=== PATIENT | male | born 1955 | race Caucasian/White ===

== ENCOUNTER 2017-05-01 07:45 | Emergency (ER) | payer MEDICARE, OTHER ==
[2017-05-01] MEDS ORDERED: Adenosine 6 MG/2 ML SDV IVPUSH ONE (07:52)
[2017-05-01] MEDS ORDERED: Adenosine 12 MG/4 ML SDV ONE (07:55)
[2017-05-01] MEDS ORDERED: Adenosine 6 MG/2 ML SDV ONE (07:55)
[2017-05-01] MEDS ORDERED: Sodium Chloride 0.9% 1,000 ML IV SCH (08:00)
--- NOTE | 2017-05-01 08:03 | EDM.PDOC ---
ED HPI GENERAL MEDICAL PROBLEM - General Chief Complaint: Cardiovascular Problem Stated Complaint: CHEST PAIN Time Seen by Provider: 05/01/17 07:48 Source of Information: Reports: Patient History Limitations: Reports: No Limitations - History of Present Illness INITIAL COMMENTS - FREE TEXT/NARRATIVE: 61-year-old male presents to the ED with sudden onset of palpitations with central chest pressure discomfort radiating to his mid back in January. Associated dyspnea and dizziness. Note the patient had attended muslim about 10- 7 this morning and about 7:40 this a.m. he developed palpitations and dizziness while standing. He sat down but he remained dizzy and developed central chest discomfort and was aware of palpitations in his chest. Of note this is never happened before. He denies taking any medications. He smokes one pack of cigarettes per day. Drinks coffee all day long. No recent use of dietary drinks or energy drinks. Upon arrival heart rate is up to 190 minute with a regular narrow complex tachycardia. Onset: Today Onset Date: 05/01/17 Onset Time: 07:40 Duration: Minutes: Location: Reports: Chest, Back (Name of neck and mid back), Upper Extremity, Left Quality: Reports: Ache, Pressure Severity: Moderate Improves with: Reports: None Worsens with: Reports: Movement Context: Reports: Other (Was standing in muslim when symptoms started). Denies : Activity, Exercise, Lifting, Sick Contact, Trauma Associated Symptoms: Reports: Malaise, Shortness of Breath, Weakness. Denies: Confusion, Chest Pain, Cough, cough w sputum, Diaphoresis, Fever/Chills, Headaches, Loss of Appetite, Nausea/Vomiting, Rash, Seizure, Syncope Treatments PRN PHYSICAL THERAPIST: Reports: Other (see below) (None) Mid-Sternal Chest Pain Score (Numeric/FACES): 5 - Related Data Allergies Allergy/AdvReac Type Severity Reaction Status Date / Time No Known Allergies Allergy Verified 05/01/17 08:03 Home Meds: Home Meds Metoprolol Succinate [Toprol XL] 25 mg PO DAILY #30 tab.er 05/01/17 [Rx] Past Medical History - Past Surgical History Neurological Surgical History: Reports: C-Spine (Cervical spine 2 with fusion L4 vertebra.), Discectomy, Lumbar Spine (2 surgeries on his lumbar spine with discectomy laminectomy and fusion 3 levels.) Musculoskeletal Surgical History: Reports: Hip Replacement (Right total hip replacement) Social & Family History - Tobacco Use Smoking Status *Q: Current Every Day Smoker Years of Tobacco use: 49 Packs/Tins Daily: 0.7 Used Tobacco, but Quit: No Second Hand Smoke Exposure: No - Caffeine Use Caffeine Use: Reports: Coffee - Recreational Drug Use Recreational Drug Use: No - Living Situation & Occupation Living situation: Reports: Occupation: Employed ED ROS GENERAL - Review of Systems Review Of Systems: See Below Constitutional: Reports: No Symptoms HEENT: Reports: No Symptoms Respiratory: Reports: Shortness of Breath Cardiovascular: Reports: Chest Pain (See history of present illness), Lightheadedness. Denies: Blood Pressure Problem, Claudication, Dyspnea on Exertion, Edema, Orthopnea, Palpitations, PND, Syncope, Other Endocrine: Reports: Fatigue GI/Abdominal: Reports: No Symptoms : Reports: Other (Urinary frequency with nocturia 2.) Musculoskeletal: Reports: Neck Pain, Back Pain (Chronically due to degenerative arthritis), Joint Pain ( chronically due to degenerative arthritisknees hips ) Skin: Reports: No Symptoms (with right temporal hip replacement in the past ) Neurological: Reports: Dizziness Psychiatric: Reports: No Symptoms ED EXAM, DIZZINESS - Physical Exam Exam: See Below Exam Limited By: No Limitations General Appearance: Alert, WD/WN, Anxious, Mild Distress Eye Exam: Bilateral Eye: Normal Inspection Throat/Mouth: Normal Inspection, Normal Lips, Normal Oropharynx Head Exam: Atraumatic, Normocephalic Neck: Normal Inspection, Supple, Non-Tender. No: Full Range of Motion, Lymphadenopathy (R), Thyromegaly Respiratory/Chest: Respiratory Distress, Decreased Breath Sounds (Mild tachypnea mildly decreased to both lower lung muhammad.), Wheezing (Occasional expiratory wheeze.). No: Rhonchi Cardiovascular: No Murmur, No Rub, Tachycardia (SVT at 1 91/m.) GI/Abdominal: Normal Bowel Sounds, Soft, Non-Tender, No Organomegaly, Other (No surgical scars) Neurological: Alert, Normal Mood/Affect, Normal Dorsiflexion, CN II-XII Intact, Normal Plantar Flexion, Oriented x 3 Back Exam: Normal Inspection, Decreased Range of Motion Extremities: Normal Inspection, Normal Range of Motion, Non-Tender, No Pedal Edema, Normal Capillary Refill Psychiatric: Normal Affect, Normal Mood Skin Exam: Warm, Dry, Intact, Normal Color, No Rash EKG INTERPRETATION EKG Date: 05/01/17 Time: 07:52 Rhythm: Other (SVT I now complex tachycardia at 1 91/m) Rate (Beats/Min): 191 [place]: Normal P-Wave: Absent QRS: Other (Borderline criteria for left ventricular hypertrophy pattern) ST-T: Other (Repolarization abnormality due to rate.) QT: Normal EKG Interpretation Comments: First ECG reveals SVT at 1 91/m. There is diffuse ST segment depression in all leads. Second ECG performed after identified 6 mg was given IV. The remainder reveals a return to sinus rhythm at 98/m. There are frequent unifocal PVCs. Baseline ST segment depression has returned to normal. I see no signs of ischemia at this time. Course - Vital Signs Last Recorded V/S: Last Vital Signs Temp 36.4 C 05/01/17 07:45 Pulse 88 05/01/17 08:15 Resp 12 05/01/17 08:15 BP 116/83 05/01/17 08:15 Pulse Ox 94 L 05/01/17 08:15 - Orders/Labs/Meds Orders: Active Orders 24 hr Category Date Time Status EKG 12 Lead [EKG Documentation Completion] [RC] STAT Care 05/01/17 07:45 Active EKG Documentation Completion [RC] STAT Care 05/01/17 07:59 Active Chest 1V Frontal [CR] Stat Exams 05/01/17 07:59 Taken Sodium Chloride 0.9% [Normal Saline] 1,000 ml Med 05/01/17 08:00 Active IV ASDIRECTED Medication Orders Sodium Chloride (Normal Saline) 1,000 mls @ 100 mls/hr IV ASDIRECTED CHRISTIANA Last Admin: 05/01/17 08:30 Dose: 100 mls/hr Labs: Laboratory Tests 05/01/17 05/01/17 05/01/17 Range/Units 07:50 07:50 07:50 WBC 8.66 (4.23-9.07) K/mm3 RBC 5.06 (4.63-6.08) M/mm3 Hgb 16.4 (13.7-17.5) gm/L Hct 47.5 (40.1-51.0) % MCV 93.9 H (79.0-92.2) fl MCH 32.4 H (25.7-32.2) pg MCHC 34.5 (32.2-35.5) g/dl RDW Std Deviation 46.9 H (35.1-43.9) fL Plt Count 212 (163-337) K/mm3 MPV 9.5 (9.4-12.3) fl Neutrophils % (Manual) 38 L (40-60) % Band Neutrophils % 0 (0-10) % Lymphocytes % (Manual) 51 H (20-40) % Monocytes % (Manual) 6 (2-10) % Eosinophils % (Manual) 5 (0.8-7.0) % Basophils % (Manual) 0 L (0.2-1.2) Platelet Estimate Adequate RBC Morph Comment Normal PT 10.1 (8.0-13.0) SECONDS INR 0.93 Sodium 136 (136-145) mEq/L Potassium 3.9 (3.5-5.1) mEq/L Chloride 102 (98-107) mEq/L Carbon Dioxide 27 (21-32) mEq/L Anion Gap 10.9 (5-15) BUN 23 H (7-18) mg/dL Creatinine 1.5 H (0.7-1.3) mg/dL Est Cr Clr Drug Dosing TNP Estimated GFR (MDRD) 47 (>60) mL/min BUN/Creatinine Ratio 15.3 (14-18) Glucose 110 (80-115) mg/dL Calcium 9.2 (8.5-10.1) mg/dL Magnesium 2.0 (1.8-2.4) mg/dl Total Bilirubin 0.3 (0.2-1.0) mg/dL AST 18 (15-37) U/L ALT 29 (16-63) U/L Alkaline Phosphatase 96 (46-116) U/L CK-MB (CK-2) 2.3 (0-3.6) ng/ml Troponin I < 0.017 (0.00-0.056) ng/mL Total Protein 7.4 (6.4-8.2) g/dl Albumin 3.8 (3.4-5.0) g/dl Globulin 3.6 gm/dL Albumin/Globulin Ratio 1.1 (1-2) TSH 3rd Generation 2.578 (0.358-3.74) uIU/mL Meds: Medications Generic Name Dose Route Start Last Admin Trade Name Freq PRN Reason Stop Dose Admin Sodium Chloride 1,000 mls @ 100 mls/hr 05/01/17 08:00 05/01/17 08:30 Normal Saline IV 100 mls/hr ASDIRECTED CHRISTIANA Administration Discontinued Medications Generic Name Dose Route Start Last Admin Trade Name Miranda PRN Reason Stop Dose Admin Adenosine Confirm 05/01/17 07:55 05/01/17 08:31 Adenocard Administered 05/01/17 07:56 Not Given Dose 18 mg .ROUTE .STK-MED ONE Adenosine Confirm 05/01/17 07:55 05/01/17 08:31 Adenocard Administered 05/01/17 07:56 Not Given Dose 36 mg .ROUTE .STK-MED ONE Adenosine 6 mg 05/01/17 07:52 05/01/17 07:53 Adenocard IVPUSH 05/01/17 07:53 6 mg NOW ONE Administration Metoprolol Succinate 25 mg 05/01/17 08:49 Toprol Xl PO 05/01/17 08:50 ONETIME ONE - Radiology Interpretation Free Text/Narrative:: 61-year-old male attends the ED with acute onset of palpitations and with associated dizziness and heaviness or angina chest pain rating through to his back left arm. This came on suddenly this morning at 0740 hrs. or he was standing in muslim. No previous similar events. No new medications. Drinks a fair amount of caffeine daily. Smokes 1 pack of cigarettes per day. He takes no medications. He is on no dietary agents or supplements. The ECG initially performed reveals a narrow complex tachycardia compatible with SVT. There is diffuse repolarization pattern i.e. depression likely related to rate. Patient received a medical alert. He then received 6 mg of an endocardial intravenously which did the trick in terms of returning to sinus rhythm at 98/m with frequent unifocal PVCs. Previous noted ST segment depression had normalized. He will have routine lab work performed and a supine normal chest x-ray. Labs to include a serum magnesium and TSH. - Re-Assessments/Exams Free Text/Narrative Re-Assessment/Exam: 05/01/17 08:14 current blood pressure is 127/76 with a heart rate of 89 that is sinus rhythm. 05/01/17 08:54 labs have returned and reveal a normal white count at 8.66 with 38% neutrophils 0% bands and 51% lymphocytes. Hemoglobin is 16.4 hematocrit of 47.5 platelets normal 212,000. MCV was 93.9. Coags are normal. Sodium 136 potassium 3.9. Cordarone 2 bicarbonate 27. Anion gap was 10.9. Creatinine is mildly elevated at 1.5 with an EGFR 47. TSH is normal at 2.57. Therefore no metabolic abdomen maladies were appreciated to contribute to development of SVT. SVT itself signifies a accessory pathway which is unusual to be showing problems with his age and prior. Because it was associated with the development of angina I'm going to place him on metoprolol succinate 25 mg once daily with 2 refills. He will follow-up with his personal physician in about a month's time or sooner if any further problem occur. I think at this time we can leave well enough alone versus him emergent cardiology consultation and EP studies. However if it develops again in cardiology and EP studies are indicated. Departure - Departure Time of Disposition: 08:50 Disposition: Home, Self-Care 01 Condition: Fair Clinical Impression: SVT (supraventricular tachycardia), Angina pectoris without myocardial infarction - Discharge Information Prescriptions: Metoprolol Succinate [Toprol XL] 25 mg PO DAILY #30 tab.er Referrals: Javier Aguirre MD [Primary Care Provider] - Additional Instructions: Evaluation in the emergency department today in regards to development of very rapid regular heart rate. This is called supraventricular tachycardia which means there is an accessory pathway or 2 pathways leading from the upper chambers to lower chambers of the heart. It is surprising that she had not had problems with this in the past. At any rate while standing in muslim this morning heart rate jumped up to as high as 191 bpm. This was associated with the development of central chest pain some pressure in the back and nape of neck which we call angina. This means the heart was being started for nutrients during this event. You attended the emergency room immediately and received immediate medications that converted you back to a regular rhythm in the 80s where prolongs. This of course relieve the chest discomfort in the shortness of breath and dizziness. Lab work done through the ED this morning was all completely normal with no evidence of heart attack or heart related illness. It is my suggestion that you take metoprolol succinate 25 mg tablet once daily either at bedtime or first thing in the morning to try and prevent this from occurring again since it was associated with development of chest pain. Just follow-up with her personal care provider in approximately a month's time. Of course return to the ED if any similar type events occur. - My Orders Last 24 Hours: My Active Orders 05/01/17 07:45 EKG 12 Lead [EKG Documentation Completion] [RC] STAT 05/01/17 07:59 EKG Documentation Completion [RC] STAT Chest 1V Frontal [CR] Stat 05/01/17 08:00 Sodium Chloride 0.9% [Normal Saline] 1,000 ml IV ASDIRECTED - Assessment/Plan Last 24 Hours: My Active Orders 05/01/17 07:45 EKG 12 Lead [EKG Documentation Completion] [RC] STAT 05/01/17 07:59 EKG Documentation Completion [RC] STAT Chest 1V Frontal [CR] Stat 05/01/17 08:00 Sodium Chloride 0.9% [Normal Saline] 1,000 ml IV ASDIRECTED
[2017-05-01] MEDS ORDERED: Metoprolol Succinate 25 MG Tab.ER PO ONE (08:49)
[2017-05-01 09:02] VITALS: BP 115/86
--- NOTE | 2017-05-02 08:14 | CR ---
Chest: Portable view of the chest was obtained. Comparison: No previous chest x-ray. Heart size and mediastinum are within normal limits. Previous cervical spine surgery is seen. Lungs are clear. Minimal scoliosis is noted within the spine. Impression: 1. Incidental findings. Nothing acute is seen. Diagnostic code #2
== END 2017-05-01 09:15 | disposition home or self-care (01) ==
LOC: SUPCPDRO 07:45 → JD.ED 07:45
DX: I20.9 Angina pectoris, unspecified (principal); I47.1 Supraventricular tachycardia; F17.210 Nicotine dependence, cigarettes, uncomplicated; Z79.899 Other long term (current) drug therapy; Z96.641 Presence of right artificial hip joint
CPT/HCPCS: 36415; 71010; 80053; 82553; 83735; 84443; 84484; 85025; 85610; 93005; 96361; 96374; 99285; A9270; J0153; J7040; 99284

== ENCOUNTER 2019-07-31 12:08 | Inpatient (IN) | payer MEDICARE, OTHER ==
[2019-07-31] MEDS ORDERED: Diltiazem 50 MG/10 ML SDV IVPUSH ONE (12:37)
[2019-07-31] MEDS ORDERED: Sodium Chloride 0.9% 10 ML Syringe FLUSH PRN (12:37)
[2019-07-31] MEDS ORDERED: Sodium Chloride 0.9% 1,000 ML IV SCH ×2 (12:45→15:30)
--- NOTE | 2019-07-31 13:08 | CR ---
Chest: Portable view of the chest was obtained. Comparison: Prior chest x-ray of 03/08/18. Heart size is normal. Tortuous thoracic aorta is seen. Lungs are clear with no acute parenchymal change. Previous lumbar spine surgery is noted. Impression: 1. Nothing acute is appreciated on portable chest x-ray. Diagnostic code #2
[2019-07-31] MEDS: Diltiazem 125 MG in Sodium Chloride 0.9% 100 ML IV SCH ×2 (13:39→22:14)
--- NOTE | 2019-07-31 13:41 | EDM.PDOC ---
ED HPI GENERAL MEDICAL PROBLEM - General Chief Complaint: Cardiovascular Problem Stated Complaint: HEART ISSUES Time Seen by Provider: 07/31/19 12:27 Source of Information: Reports: Patient, RN Notes Reviewed - History of Present Illness INITIAL COMMENTS - FREE TEXT/NARRATIVE: 64-year-old male comes in with rapid heart rate, palpitations. This started about one hour prior to arrival when he was just involved with some very light activity. He has no chest pain or other discomfort with this other than awareness of the rapid heart rate and some irregularity. No abdominal pain nausea or vomiting. Very mild dizziness. He is not short of breath. He does have history of an episode of SVT about 2 years ago. He is on very low-dose metoprolol 25 mg daily that he takes "when he feels like it". He also does have a strong smoking history and likely has at least mild to moderate COPD. No history of known coronary artery disease. He is found to be in a fib. on arrival to ED. He has no known history of that. Chest Pain Score (Numeric/FACES): 5 - Related Data Allergies Allergy/AdvReac Type Severity Reaction Status Date / Time No Known Allergies Allergy Verified 07/31/19 12:23 Home Meds: Home Meds Apixaban [Eliquis] 5 mg PO BID 30 Days #60 tablet 08/01/19 [Rx] Diltiazem HCl [Diltiazem 24Hr Cd] 180 mg PO BID 30 Days #60 cap.er.24h 08/01/19 [Rx] Nicotine [Habitrol] 21 mg TRDERM Q24H 30 Days #30 patch 08/01/19 [Rx] Past Medical History HEENT History: Reports: Impaired Vision Other HEENT History: wears eyeglasses Cardiovascular History: Reports: Hypertension Other Cardiovascular History: states had neck issues that caused BP issues. Respiratory History: Reports: Other (See Below) Other Respiratory History: states had neck issues and caused breathing issues in past. Gastrointestinal History: Reports: Gastritis Other Gastrointestinal History: bleeding ulcers. Musculoskeletal History: Reports: Neck Pain, Chronic Neurological History: Reports: Concussion - Infectious Disease History Infectious Disease History: Reports: Chicken Pox, Measles, Mumps - Past Surgical History Neurological Surgical History: Reports: C-Spine, Discectomy, Lumbar Spine Musculoskeletal Surgical History: Reports: Hip Replacement Social & Family History - Tobacco Use Smoking Status *Q: Current Every Day Smoker Years of Tobacco use: 53 Packs/Tins Daily: 1 - Caffeine Use Caffeine Use: Reports: Coffee - Recreational Drug Use Recreational Drug Use: No - Living Situation & Occupation Living situation: Reports: Occupation: Employed ED ROS GENERAL - Review of Systems Review Of Systems: See Below Constitutional: Denies: Fever, Chills HEENT: Reports: No Symptoms Respiratory: Denies: Shortness of Breath Cardiovascular: Reports: Palpitations. Denies: Chest Pain GI/Abdominal: Denies: Abdominal Pain, Nausea, Vomiting Musculoskeletal: Denies: Neck Pain, Shoulder Pain, Arm Pain, Back Pain Neurological: Reports: Dizziness (Mild). Denies: Numbness, Tingling, Trouble Speaking, Difficulty Walking, Weakness ED EXAM, GENERAL - Physical Exam Exam: See Below General Appearance: Alert, No Apparent Distress Eye Exam: Bilateral Eye: PERRL Throat/Mouth: Normal Inspection Head: Atraumatic. No: Facial Swelling Neck: Supple, Full Range of Motion Respiratory/Chest: No Respiratory Distress, Lungs Clear, Normal Breath Sounds Cardiovascular: Tachycardia, Irregularly Irregular GI/Abdominal: Soft, Non-Tender Back Exam: Normal Inspection. No: CVA Tenderness (L), CVA Tenderness (R) Extremities: Normal Inspection. No: Pedal Edema, Leg Pain, Increased Warmth, Redness Neurological: Alert, Oriented, No Motor/Sensory Deficits Skin Exam: Warm, Dry, Normal Color EKG INTERPRETATION EKG Date: 07/31/19 Rhythm: A-Fib P-Wave: Absent QRS: Normal ST-T: Other (Mild diffuse ST changes) Course - Vital Signs Last Recorded V/S: Last Vital Signs Temp 98.5 F 08/01/19 15:44 Pulse 72 08/01/19 19:43 Resp 18 08/01/19 19:43 BP 140/84 08/01/19 19:43 Pulse Ox 96 08/01/19 19:43 - Orders/Labs/Meds Labs: Laboratory Tests 07/31/19 07/31/19 07/31/19 Range/Units 12:20 12:20 12:45 WBC 6.29 (4.23-9.07) K/mm3 RBC 5.04 (4.63-6.08) M/mm3 Hgb 16.2 (13.7-17.5) gm/dl Hct 47.9 (40.1-51.0) % MCV 95.0 H (79.0-92.2) fl MCH 32.1 (25.7-32.2) pg MCHC 33.8 (32.2-35.5) g/dl RDW Std Deviation 46.4 H (35.1-43.9) fL Plt Count 205 (163-337) K/mm3 MPV 9.4 (9.4-12.3) fl Neut % (Auto) 42.5 (34.0-67.9) % Lymph % (Auto) 36.2 (21.8-53.1) % Centre % (Auto) 10.5 (5.3-12.2) % Eos % (Auto) 9.5 H (0.8-7.0) Baso % (Auto) 1.1 (0.1-1.2) % Neut # (Auto) 2.67 (1.78-5.38) K/mm3 Lymph # (Auto) 2.28 (1.32-3.57) K/mm3 Centre # (Auto) 0.66 (0.30-0.82) K/mm3 Eos # (Auto) 0.60 H (0.04-0.54) K/mm3 Baso # (Auto) 0.07 (0.01-0.08) K/mm3 Sodium 136 (136-145) mEq/L Potassium 3.7 (3.5-5.1) mEq/L Chloride 99 (98-107) mEq/L Carbon Dioxide 28 (21-32) mEq/L Anion Gap 12.7 (5-15) BUN 14 (7-18) mg/dL Creatinine 1.1 (0.7-1.3) mg/dL Est Cr Clr Drug Dosing TNP Estimated GFR (MDRD) > 60 (>60) mL/min BUN/Creatinine Ratio 12.7 L (14-18) Glucose 142 H (80-115) mg/dL Calcium 8.6 (8.5-10.1) mg/dL Total Bilirubin 0.5 (0.2-1.0) mg/dL AST 18 (15-37) U/L ALT 22 (16-63) U/L Alkaline Phosphatase 100 (46-116) U/L Troponin I < 0.017 (0.00-0.056) ng/mL NT-Pro-B Natriuret Pep (0-125) pg/mL Total Protein 7.1 (6.4-8.2) g/dl Albumin 3.4 (3.4-5.0) g/dl Globulin 3.7 gm/dL Albumin/Globulin Ratio 0.9 L (1-2) 07/31/19 Range/Units 15:15 WBC (4.23-9.07) K/mm3 RBC (4.63-6.08) M/mm3 Hgb (13.7-17.5) gm/dl Hct (40.1-51.0) % MCV (79.0-92.2) fl MCH (25.7-32.2) pg MCHC (32.2-35.5) g/dl RDW Std Deviation (35.1-43.9) fL Plt Count (163-337) K/mm3 MPV (9.4-12.3) fl Neut % (Auto) (34.0-67.9) % Lymph % (Auto) (21.8-53.1) % Centre % (Auto) (5.3-12.2) % Eos % (Auto) (0.8-7.0) Baso % (Auto) (0.1-1.2) % Neut # (Auto) (1.78-5.38) K/mm3 Lymph # (Auto) (1.32-3.57) K/mm3 Centre # (Auto) (0.30-0.82) K/mm3 Eos # (Auto) (0.04-0.54) K/mm3 Baso # (Auto) (0.01-0.08) K/mm3 Sodium (136-145) mEq/L Potassium (3.5-5.1) mEq/L Chloride (98-107) mEq/L Carbon Dioxide (21-32) mEq/L Anion Gap (5-15) BUN (7-18) mg/dL Creatinine (0.7-1.3) mg/dL Est Cr Clr Drug Dosing Estimated GFR (MDRD) (>60) mL/min BUN/Creatinine Ratio (14-18) Glucose (80-115) mg/dL Calcium (8.5-10.1) mg/dL Total Bilirubin (0.2-1.0) mg/dL AST (15-37) U/L ALT (16-63) U/L Alkaline Phosphatase (46-116) U/L Troponin I (0.00-0.056) ng/mL NT-Pro-B Natriuret Pep 340 H (0-125) pg/mL Total Protein (6.4-8.2) g/dl Albumin (3.4-5.0) g/dl Globulin gm/dL Albumin/Globulin Ratio (1-2) Meds: Medications Discontinued Medications Generic Name Dose Route Start Last Admin Trade Name Freq PRN Reason Stop Dose Admin Acetaminophen 650 mg 07/31/19 18:16 Tylenol PO Q4H PRN Pain (Mild 1-3)/fever Apixaban 5 mg 07/31/19 21:00 08/01/19 20:01 Eliquis PO 5 mg BID CHRISTIANA Administration Diltiazem HCl 20 mg 07/31/19 12:37 07/31/19 12:42 Cardizem IVPUSH 07/31/19 12:38 20 mg ONETIME ONE Administration Diltiazem HCl 120 mg 08/01/19 11:30 08/01/19 11:26 Cardizem Cd PO 120 mg BID CHRISTIANA Administration Diltiazem HCl 180 mg 08/01/19 21:00 Cardizem Cd PO 08/01/19 21:01 BID ONE Diltiazem HCl 60 mg 08/01/19 12:00 08/01/19 11:54 Cardizem PO 08/01/19 12:01 60 mg ONETIME ONE Administration Diltiazem HCl 180 mg 08/01/19 21:00 08/01/19 20:01 Cardizem Cd PO 180 mg BID CHRISTIANA Administration Sodium Chloride 1,000 mls @ 999 mls/hr 07/31/19 12:45 07/31/19 12:51 Normal Saline IV 999 mls/hr ONETIME CHRISTIANA Administration Diltiazem HCl 125 mg/ Sodium 125 mls @ 5 mls/hr 07/31/19 13:15 08/01/19 08:45 Chloride IV 0 mg/hr TITRATE CHRISTIANA 0 mls/hr Titration Protocol 5 MG/HR Sodium Chloride 1,000 mls @ 999 mls/hr 07/31/19 15:30 Normal Saline IV ONETIME CHRISITANA Ibuprofen 800 mg 07/31/19 16:10 07/31/19 16:16 Motrin PO 07/31/19 16:11 800 mg ONETIME ONE Administration Miscellaneous Information 0 ea 08/02/19 11:00 Remove Patch TRDERM Q24H CHRISTIANA Nicotine 21 mg 08/01/19 11:00 08/01/19 11:28 Habitrol TRDERM Not Given Q24H CHRISTIANA Ondansetron HCl 4 mg 07/31/19 18:16 Zofran IV Q4H PRN Nausea/Vomiting Sodium Chloride 10 ml 07/31/19 12:37 07/31/19 12:45 Saline Flush FLUSH 10 ml ASDIRECTED PRN Administration Keep Vein Open - Re-Assessments/Exams Free Text/Narrative Re-Assessment/Exam: 07/31/19 15:30 Chest x-ray shows very mild hyperinflation compatible with mild to moderate COPD. Heart size normal, no or infiltrate. We did treat initially with 20 mg diltiazem IV and with that his rate did come down to about 100-110. Started on a 5 mg drip which has been gradually titrated up to 15. Heart rate currently running in the 90s up to about 110. He had been in the 120s not too long ago. There is no history of prior A. fib. Patient will be admitted for further treatment. Departure - Departure Time of Disposition: 15:32 Disposition: Refer to Observation Condition: Fair Clinical Impression: Atrial fibrillation with RVR ED Communication - Discussed Case With (1) Discussed Case With (1): Admitting Provider (Discussed with Dr Blank, decision to admit at about 14:30.)
[2019-07-31] MEDS ORDERED: Ibuprofen 800 MG Tab PO ONE (16:10)
[2019-07-31] MEDS ORDERED: Ondansetron 4 MG/2 ML SDV IV PRN (18:16)
[2019-07-31] MEDS ORDERED: Acetaminophen 325 MG Tab PO PRN (18:16)
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
[2019-07-31] MEDS: Apixaban 5 MG Tab PO SCH (21:09)
--- NOTE | 2019-08-01 07:45 | PCM.PN ---
- General Info Date of Service: 08/01/19 - Patient Data Vitals - Most Recent: Last Vital Signs Temp 36.9 C 08/01/19 04:00 Pulse 79 08/01/19 07:00 Resp 18 08/01/19 07:00 BP 99/87 08/01/19 07:00 Pulse Ox 95 08/01/19 07:00 Weight - Most Recent: 70.806 kg I&O - Last 24 Hours: Intake & Output 07/31/19 08/01/19 08/01/19 22:59 06:59 14:59 Intake Total 180 117 Balance 180 117 Lab Results Last 24 Hours: Laboratory Results - last 24 hr 07/31/19 07/31/19 07/31/19 Range/Units 12:20 12:20 12:45 WBC 6.29 (4.23-9.07) K/mm3 RBC 5.04 (4.63-6.08) M/mm3 Hgb 16.2 (13.7-17.5) gm/dl Hct 47.9 (40.1-51.0) % MCV 95.0 H (79.0-92.2) fl MCH 32.1 (25.7-32.2) pg MCHC 33.8 (32.2-35.5) g/dl RDW Std Deviation 46.4 H (35.1-43.9) fL Plt Count 205 (163-337) K/mm3 MPV 9.4 (9.4-12.3) fl Neut % (Auto) 42.5 (34.0-67.9) % Lymph % (Auto) 36.2 (21.8-53.1) % [place] % (Auto) 10.5 (5.3-12.2) % Eos % (Auto) 9.5 H (0.8-7.0) Baso % (Auto) 1.1 (0.1-1.2) % Neut # (Auto) 2.67 (1.78-5.38) K/mm3 Lymph # (Auto) 2.28 (1.32-3.57) K/mm3 [place] # (Auto) 0.66 (0.30-0.82) K/mm3 Eos # (Auto) 0.60 H (0.04-0.54) K/mm3 Baso # (Auto) 0.07 (0.01-0.08) K/mm3 Sodium 136 (136-145) mEq/L Potassium 3.7 (3.5-5.1) mEq/L Chloride 99 (98-107) mEq/L Carbon Dioxide 28 (21-32) mEq/L Anion Gap 12.7 (5-15) BUN 14 (7-18) mg/dL Creatinine 1.1 (0.7-1.3) mg/dL Est Cr Clr Drug Dosing TNP Estimated GFR (MDRD) > 60 (>60) mL/min BUN/Creatinine Ratio 12.7 L (14-18) Glucose 142 H (80-115) mg/dL Calcium 8.6 (8.5-10.1) mg/dL Magnesium (1.8-2.4) mg/dl Total Bilirubin 0.5 (0.2-1.0) mg/dL AST 18 (15-37) U/L ALT 22 (16-63) U/L Alkaline Phosphatase 100 (46-116) U/L Troponin I < 0.017 (0.00-0.056) ng/mL NT-Pro-B Natriuret Pep (0-125) pg/mL Total Protein 7.1 (6.4-8.2) g/dl Albumin 3.4 (3.4-5.0) g/dl Globulin 3.7 gm/dL Albumin/Globulin Ratio 0.9 L (1-2) TSH 3rd Generation (0.358-3.74) uIU/mL 07/31/19 08/01/19 08/01/19 Range/Units 15:15 04:06 04:06 WBC 6.33 (4.23-9.07) K/mm3 RBC 4.50 L (4.63-6.08) M/mm3 Hgb 14.5 D (13.7-17.5) gm/dl Hct 42.8 (40.1-51.0) % MCV 95.1 H (79.0-92.2) fl MCH 32.2 (25.7-32.2) pg MCHC 33.9 (32.2-35.5) g/dl RDW Std Deviation 46.1 H (35.1-43.9) fL Plt Count 181 (163-337) K/mm3 MPV 9.2 L (9.4-12.3) fl Neut % (Auto) 35.2 (34.0-67.9) % Lymph % (Auto) 42.5 (21.8-53.1) % [place] % (Auto) 12.8 H (5.3-12.2) % Eos % (Auto) 8.4 H (0.8-7.0) Baso % (Auto) 0.9 (0.1-1.2) % Neut # (Auto) 2.23 (1.78-5.38) K/mm3 Lymph # (Auto) 2.69 (1.32-3.57) K/mm3 [place] # (Auto) 0.81 (0.30-0.82) K/mm3 Eos # (Auto) 0.53 (0.04-0.54) K/mm3 Baso # (Auto) 0.06 (0.01-0.08) K/mm3 Sodium 138 (136-145) mEq/L Potassium 4.3 (3.5-5.1) mEq/L Chloride 106 (98-107) mEq/L Carbon Dioxide 25 (21-32) mEq/L Anion Gap 11.3 (5-15) BUN 15 (7-18) mg/dL Creatinine 1.0 (0.7-1.3) mg/dL Est Cr Clr Drug Dosing 72.77 Estimated GFR (MDRD) > 60 (>60) mL/min BUN/Creatinine Ratio 15.0 (14-18) Glucose 98 (80-115) mg/dL Calcium 8.4 L (8.5-10.1) mg/dL Magnesium 1.9 (1.8-2.4) mg/dl Total Bilirubin 0.4 (0.2-1.0) mg/dL AST 17 (15-37) U/L ALT 20 (16-63) U/L Alkaline Phosphatase 82 (46-116) U/L Troponin I (0.00-0.056) ng/mL NT-Pro-B Natriuret Pep 340 H (0-125) pg/mL Total Protein 5.9 L (6.4-8.2) g/dl Albumin 2.8 L (3.4-5.0) g/dl Globulin 3.1 gm/dL Albumin/Globulin Ratio 0.9 L (1-2) TSH 3rd Generation 1.759 (0.358-3.74) uIU/mL Med Orders - Current: Current Medications Acetaminophen (Tylenol) 650 mg PO Q4H PRN PRN Reason: Pain (Mild 1-3)/fever Apixaban (Eliquis) 5 mg PO BID [facility] Last Admin: 07/31/19 21:09 Dose: 5 mg Diltiazem HCl 125 mg/ Sodium (Chloride) 125 mls @ 5 mls/hr IV TITRATE [facility]; Protocol Last Titration: 08/01/19 01:08 Dose: 8 mg/hr, 8 mls/hr Ondansetron HCl (Zofran) 4 mg IV Q4H PRN PRN Reason: Nausea/Vomiting Sodium Chloride (Saline Flush) 10 ml FLUSH ASDIRECTED PRN PRN Reason: Keep Vein Open Last Admin: 07/31/19 12:45 Dose: 10 ml Discontinued Medications Diltiazem HCl (Cardizem) 20 mg IVPUSH ONETIME ONE Stop: 07/31/19 12:38 Last Admin: 07/31/19 12:42 Dose: 20 mg Sodium Chloride (Normal Saline) 1,000 mls @ 999 mls/hr IV ONETIME [facility] Last Admin: 07/31/19 12:51 Dose: 999 mls/hr Sodium Chloride (Normal Saline) 1,000 mls @ 999 mls/hr IV ONETIME [facility] Ibuprofen (Motrin) 800 mg PO ONETIME ONE Stop: 07/31/19 16:11 Last Admin: 07/31/19 16:16 Dose: 800 mg - Plan Plan:: Assessment * Atrial fibrillation with RVR * On Cardizem drip with rate control * [id number] - 2 - High risk * HAS-Bled - 1 - Intermediate risk * Elevated BNP likely secondary to high output cardiac screen * Tobaccoism * Large amount of coffee use * Individuals who drink extreme amounts of coffee have increased risk for atrial fibrillation. * History of hypertension * Taking metoprolol succinate 25 mg when necessary * History of SVT Plan * Admit to ICU * Cardizem drip titrated to keep heart rate less than 100 * Changed to oral medication the morning. * Eliquis 5 mg twice a day for stroke prophylaxis * Counseled on smoking cessation for 5 minutes. Patient refused nicotine patch. * Recommended decreasing coffee intake to no more than 4 cups a day. * CBC, CMP, magnesium, TSH in the morning * VTE prophylaxis with Eliquis * CODE STATUS: full code
[2019-08-01] MEDS: Apixaban 5 MG Tab PO SCH ×2 (08:13→20:01)
[2019-08-01] MEDS ORDERED: Nicotine 21 MG/24 Hr Patch TRDERM SCH (11:00)
[2019-08-01] MEDS ORDERED: Diltiazem 120 MG Cap.CD PO SCH (11:30)
[2019-08-01] MEDS ORDERED: Diltiazem IR 60 MG Tab PO ONE (12:00)
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
[2019-08-01 20:10] VITALS: BP 140/84; PULSE 72
[2019-08-01] MEDS ORDERED: Diltiazem 180 MG Cap.CD PO ONE (21:00)
[2019-08-01] MEDS ORDERED: Diltiazem 180 MG Cap.CD PO SCH (21:00)
== END 2019-08-01 20:14 | disposition home or self-care (01) | DRG 310 ==
LOC: JD.ED 12:08 → JD.ICU 17:07
PROVIDERS: ADMIT Family Medicine; ATTEND Family Medicine
DX: I48.91 Unspecified atrial fibrillation (principal); R42 Dizziness and giddiness; I20.9 Angina pectoris, unspecified; Z72.0 Tobacco use; Z79.899 Other long term (current) drug therapy; F17.210 Nicotine dependence, cigarettes, uncomplicated; J44.9 Chronic obstructive pulmonary disease, unspecified; H54.7 Unspecified visual loss; I10 Essential (primary) hypertension; M54.9 Dorsalgia, unspecified; G89.29 Other chronic pain; Z96.649 Presence of unspecified artificial hip joint; E88.09 Other disorders of plasma-protein metabolism, not elsewhere classified
CPT/HCPCS: 36415; 71045; 71045-26; 80053; 83735; 83880; 84443; 84484; 85025; 93005; 93010; 93306; 96361; 96365; 96366; 96376; 99284; 99285-25; A9270-GY; J3490; J7030; J7040

== ENCOUNTER 2021-11-10 11:21 | Inpatient (IN) | payer MEDICARE, OTHER ==
[2021-11-10] MEDS ORDERED: Sodium Chloride 0.9% 10 ML Syringe FLUSH PRN (11:43)
[2021-11-10] MEDS ORDERED: Sodium Chloride 0.9% 1,000 ML IV STA (11:54)
[2021-11-10] MEDS ORDERED: Pantoprazole 40 MG Vial IVPUSH ONE (12:31)
[2021-11-10] MEDS ORDERED: Iopamidol 612 MG/ML 100 ML Bottle IVPUSH ONE (12:51)
[2021-11-10] MEDS ORDERED: HYDROmorphone 0.5 MG/0.5 ML Syringe IVPUSH PRN (17:27)
[2021-11-10] MEDS ORDERED: Acetaminophen 325 MG Tab PO PRN (17:27)
[2021-11-10] MEDS ORDERED: Ondansetron 4 MG/2 ML SDV IV PRN (17:27)
[2021-11-10] MEDS ORDERED: Lactated Ringers 1,000 ML IV SCH (17:30)
[2021-11-11] MEDS ORDERED: Pantoprazole 40 MG Vial IVPUSH SCH (08:00)
[2021-11-11 12:30] VITALS: PULSE 81
[2021-11-11 15:22] VITALS: BP 124/88
== END 2021-11-11 14:45 | disposition home or self-care (01) | DRG 812 ==
LOC: JD.ED 11:21 → JD.ICU 15:26
PROVIDERS: ADMIT Hospitalist; ATTEND Hospitalist
PROC: 30233N1 Transfusion of Nonautologous Red Blood Cells into Peripheral Vein, Percutaneous Approach (ICD-10-PCS; principal; 2021-11-10)
DX: S09.8XXA Other specified injuries of head, initial encounter (principal); K92.1 Melena; D64.9 Anemia, unspecified; W19.XXXA Unspecified fall, initial encounter; K92.2 Gastrointestinal hemorrhage, unspecified; K21.9 Gastro-esophageal reflux disease without esophagitis; I49.9 Cardiac arrhythmia, unspecified; K63.89 Other specified diseases of intestine; N42.89 Other specified disorders of prostate; N28.1 Cyst of kidney, acquired; H54.7 Unspecified visual loss; I10 Essential (primary) hypertension; M54.2 Cervicalgia; G89.29 Other chronic pain; I48.91 Unspecified atrial fibrillation; F17.210 Nicotine dependence, cigarettes, uncomplicated; F17.200 Nicotine dependence, unspecified, uncomplicated; Z96.649 Presence of unspecified artificial hip joint; Z88.0 Allergy status to penicillin; Z79.899 Other long term (current) drug therapy
CPT/HCPCS: 36415; 70450; 74177; 80053; 83735; 84484; 85025 ×2; 86140; 86850; 86900; 86901; 86922; 93005; C9113; J7030; Q9967; 36430; 85018; 85610; 93010; 96374; 99285; 99285-25; P9016

== ENCOUNTER 2021-12-01 10:29 | Day surgery (SDC) | payer MEDICARE, OTHER ==
[~2021-12-01 10:29] MED LIST: Lactated Ringers 1,000 ML IV SCH; Lidocaine 1%/Sod Bicarbonate in NS 8.4% 1 ML Syringe IDERM PRN; Propofol 200 MG/20 ML SDV ONE; Sodium Chloride 0.9% 10 ML Syringe FLUSH PRN; Sodium Chloride 0.9% 10 ML Syringe FLUSH SCH
[2021-12-01] MEDS ORDERED: Albuterol 0.083% 2.5 MG/3 ML Neb Soln NEB ONE (11:15)
[2021-12-01] MEDS ORDERED: fentaNYL 100 MCG/2 ML SDV ONE ×2 (12:25→13:56)
[2021-12-01] MEDS ORDERED: Propofol 200 MG/20 ML SDV ONE ×2 (12:25→13:33)
[2021-12-01] MEDS ORDERED: Midazolam 1 MG/ML 2 ML SDV ONE (12:25)
[2021-12-01] MEDS ORDERED: Simethicone 80 MG Tab.Chew PO ONE (14:33)
[2021-12-01 15:46] VITALS: BP 157/97; PULSE 82
== END 2021-12-01 15:13 | disposition home or self-care (01) ==
LOC: JD.SDS 10:29
PROVIDERS: ATTEND Surgery
DX: D12.6 Benign neoplasm of colon, unspecified (principal); D64.9 Anemia, unspecified; K29.80 Duodenitis without bleeding; K44.9 Diaphragmatic hernia without obstruction or gangrene; K31.A0 Gastric intestinal metaplasia, unspecified; K29.50 Unspecified chronic gastritis without bleeding; B96.81 Helicobacter pylori [H. pylori] as the cause of diseases classified elsewhere; I48.91 Unspecified atrial fibrillation; I10 Essential (primary) hypertension; F17.210 Nicotine dependence, cigarettes, uncomplicated; K21.9 Gastro-esophageal reflux disease without esophagitis; Z79.899 Other long term (current) drug therapy; Z98.890 Other specified postprocedural states
CPT/HCPCS: 36415; 43239; 45385; 85025; 88305; A9270; J2250; J2704; J3010; J7120; 00813

== ENCOUNTER 2022-06-30 06:37 | Day surgery (SDC) | payer MEDICARE, OTHER ==
[~2022-06-30 06:37] MED LIST changes: +Acetaminophen 325 MG Tab PO SCH; +EPINEPHrine 1 MG/ML SDV ONE; +Morphine 8 MG, EPINEPHrine 0.3 MG, Cefuroxime 750 MG, Ketorolac 30 MG, Sodium Chloride ... PRN; +Pregabalin 25 MG Cap PO SCH; +Ropivacaine 0.5% 5 MG/ML 30 ML SDV ONE; +Vancomycin 1 GM SDV ONE; +fentaNYL 100 MCG/2 ML SDV ONE; +oxyCODONE ER 10 MG TAB.ER PO SCH
[2022-06-30] MEDS ORDERED: ceFAZolin 2 GM Vial ONE (07:28)
[2022-06-30] MEDS ORDERED: fentaNYL 100 MCG/2 ML SDV IVPUSH PRN (08:16)
[2022-06-30] MEDS ORDERED: Ondansetron 4 MG/2 ML SDV IVPUSH PRN (08:16)
[2022-06-30] MEDS ORDERED: HYDROmorphone 0.5 MG/0.5 ML Syringe IVPUSH PRN (08:16)
[2022-06-30] MEDS ORDERED: Ketorolac 15 MG/ML SDV ONE (08:30)
[2022-06-30] MEDS ORDERED: Ondansetron 4 MG/2 ML SDV ONE (08:33)
[2022-06-30 11:10] VITALS: BP 129/91; PULSE 58
== END 2022-06-30 11:34 | disposition home or self-care (01) ==
LOC: JD.SDS 06:37
PROVIDERS: ATTEND Orthopaedic Surgery
DX: M17.12 Unilateral primary osteoarthritis, left knee (principal); I10 Essential (primary) hypertension; J30.9 Allergic rhinitis, unspecified; F17.210 Nicotine dependence, cigarettes, uncomplicated; Z79.899 Other long term (current) drug therapy; Z98.890 Other specified postprocedural states; I48.91 Unspecified atrial fibrillation; K21.9 Gastro-esophageal reflux disease without esophagitis; B96.81 Helicobacter pylori [H. pylori] as the cause of diseases classified elsewhere; Z96.649 Presence of unspecified artificial hip joint; Z98.1 Arthrodesis status
CPT/HCPCS: 0055T; 27447; 73560; 97116; 97161; A9270; C1713; C1776; J0171; J0690; J0697; J1885; J2270; J2405; J2704; J2795; J3010; J3370; J7120; 01402; 64450; 76942

== ENCOUNTER 2022-07-21 10:49 | Emergency (ER) | payer MEDICARE, OTHER ==
[2022-07-21] MEDS ORDERED: Adenosine 12 MG/4 ML SDV ONE (10:57)
[2022-07-21] MEDS ORDERED: Adenosine 6 MG/2 ML SDV ONE (10:57)
[2022-07-21] MEDS ORDERED: Sodium Chloride 0.9% 10 ML Syringe FLUSH PRN (11:06)
[2022-07-21] MEDS ORDERED: Sodium Chloride 0.9% 1,000 ML IV SCH (11:15)
[2022-07-21 11:51] VITALS: BP 131/95; PULSE 76
== END 2022-07-21 12:35 | disposition home or self-care (01) ==
LOC: JD.ED 10:49
DX: I47.1 Supraventricular tachycardia (principal); I10 Essential (primary) hypertension; F17.210 Nicotine dependence, cigarettes, uncomplicated; Z79.899 Other long term (current) drug therapy; Z79.01 Long term (current) use of anticoagulants
CPT/HCPCS: 36415; 71045; 80053; 83735; 84443; 84484; 85025; 93005; 96360; 99285; J0153; J3490; J7030

== ENCOUNTER 2023-06-04 10:18 | Emergency (ER) | payer MEDICARE, OTHER ==
[2023-06-04 10:38] VITALS: BP 173/115; PULSE 76
[2023-06-04] MEDS ORDERED: Sodium Chloride 0.9% 10 ML Syringe FLUSH PRN (10:39)
[2023-06-04 11:02] LABS: BASOPHILS ABSOLUTE AUTO 0.1 K/mm3 (0.0-0.2); BASOPHILS PERCENT AUTO 1.7 % (0.0-1.0); EOSINOPHILS ABSOLUTE AUTO 0.5 K/mm3 (0.0-0.4); EOSINOPHILS PERCENT AUTO 10.3 % (0.0-6.0); HEMATOCRIT 45.5 % (42.0-52.0); HEMOGLOBIN 15.5 gm/dl (14.0-18.0); IMMATURE GRAN ABSOLUTE AUTO 0.01 K/mm3 (0.00-0.05); IMMATURE GRAN PERCENT AUTO 0.2 % (0.0-0.4); LYMPHOCYTES ABSOLUTE AUTO 1.6 K/mm3 (1.0-4.8); MEAN CORPUSCULAR HGB CONC 34.1 g/dl (32.0-36.0); MEAN CORPUSCULAR VOLUME 96.8 fl (83.0-99.0); MONOCYTES ABSOLUTE AUTO 0.7 K/mm3 (0.0-0.8); MONOCYTES PERCENT AUTO 13.4 % (0.0-8.0); NEUTROPHILS ABSOLUTE AUTO 2.3 K/mm3 (1.8-7.7); NEUTROPHILS PERCENT AUTO 44.4 % (41.0-71.0); PLATELET COUNT,PLT 169 K/mm3 (150-400); WHITE BLOOD CELL COUNT,WBC 5.24 K/mm3 (3.9-11.3)
[2023-06-04 11:23] LABS: ALBUMIN 3.4 g/dl (3.4-5.0); BILIRUBIN TOTAL 0.6 mg/dL (0.2-1.0); CALCIUM 8.6 mg/dL (8.5-10.1); EST CRCL DRUG DOSING (CG) 69.72 mL/min; MAGNESIUM 1.8 mg/dL (1.8-2.4); PROTEIN TOTAL,TP 6.8 g/dl (6.4-8.2)
[2023-06-04 11:47] LABS: INR 1.01; PROTHROMBIN TIME 10.8 SECONDS (9.7-12.0)
[2023-06-04 11:50] LABS: D-DIMER QUANTITATIVE 0.58 mg/L (0.19-0.50)
[2023-06-04] MEDS ORDERED: Albuterol/Ipratropium 3.0-0.5 MG/3 ML Neb Soln NEB ONE (12:59)
[2023-06-04] MEDS: Loratadine 10 MG Tab PO ONE ×2 (13:04→13:37)
== END 2023-06-04 13:35 | disposition home or self-care (01) ==
LOC: JD.ED 10:18
DX: J98.01 Acute bronchospasm (principal); I48.91 Unspecified atrial fibrillation; I10 Essential (primary) hypertension; Z79.01 Long term (current) use of anticoagulants; Z72.0 Tobacco use; Z91.09 Other allergy status, other than to drugs and biological substances
CPT/HCPCS: 36415; 71045; 80053; 83735; 83880; 84484; 85025; 85379; 85610; 93005; 94640; 99285; A9270; J3490; J7620-GY